=== PATIENT | female | born 2000 | race Two or more races ===

== ENCOUNTER 2022-05-16 13:56 | Emergency (ER) | payer BC ==
[~2022-05-16] VITALS: Ht 154.9 cm; Wt 61.2 kg
--- NOTE | 2022-05-16 14:17 | NUR ---
DR IRVING AT BEDSIDE W/ PT
--- NOTE | 2022-05-16 14:56 | NUR ---
PT TAKEN TO RADIOLOGY VIA [facility]NA[facility]
[2022-05-16] MEDS ORDERED: NAPR-1192 PO (15:49)
[2022-05-16 16:03] VITALS: BP 120/77
--- NOTE | 2022-05-16 16:03 | NUR ---
Patient discharged to home in stable condition. Written and verbal after care instructions given. Patient verbalizes understanding of instruction.
== END 2022-05-16 16:04 | disposition home or self-care (01) ==
LOC: ER 14:07
DX: S16.1XXA Strain of muscle, fascia and tendon at neck level, initial encounter (principal); Z79.1 Long term (current) use of non-steroidal anti-inflammatories (NSAID); V89.2XXA Person injured in unspecified motor-vehicle accident, traffic, initial encounter; Y93.89 Activity, other specified; Y92.89 Other specified places as the place of occurrence of the external cause; Y99.8 Other external cause status
CPT/HCPCS: 99284; 72125; 70450; A6403

== ENCOUNTER 2022-10-29 11:17 | Emergency (ER) | payer BC ==
[~2022-10-29] VITALS: Ht 154.9 cm; Wt 59.0 kg
[~2022-10-29 11:17] MED LIST: NAPR-1192 PO
--- NOTE | 2022-10-29 11:40 | NUR ---
[facility] AT BEDSIDE
--- NOTE | 2022-10-29 11:40 | NUR ---
BIBFRIEND C/O vaginal bleeding that started 2 1/2 weeks ago. feeling dizzy x today. AMBULATORY, PLACED IN BED, AAOX4, BJREATHING UNLABORED SATURATING AT 97%RA
[2022-10-29 11:50] LABS: BASOPHILS % (AUTO) 0.8 % (0.0-2.0); EOSINOPHILS % (AUTO) 2.7 % (0.0-6.0); HEMATOCRIT 38 % (33-45); HEMOGLOBIN 12.7 g/dL (11.5-14.8); LYMPHOCYTES # (AUTO) 1.8 K/uL (0.8-4.8); LYMPHOCYTES % (AUTO) 34.1 % (20.0-44.0); MEAN CORPUSCULAR HGB CONC 33 g/dl (31.0-36.0); MEAN CORPUSCULAR VOLUME 91 fL (82-100); MONOCYTES # (AUTO) 0.3 K/uL (0.1-1.30); MONOCYTES % (AUTO) 5.8 % (2.0-12.0); NEUTROPHILS % (AUTO) 56.6 % (43.0-81.0); PLATELET COUNT (AUTO) 244 K/uL (150-450); RED BLOOD CELL COUNT(AUTO) 4.23 MIL/uL (4.0-5.2); WHITE BLOOD COUNT (AUTO) 5.2 K/uL (4.3-11.0)
--- NOTE | 2022-10-29 11:56 | NUR ---
U/S TECH AT BEDSIDE
[2022-10-29] MEDS ORDERED: IV NS 0.9% 1,000 ML IV ONE (12:00)
[2022-10-29 12:12] LABS: CALCIUM, SERUM 9.5 mg/dL (8.5-10.1); CREATININE 0.9 mg/dL (0.6-1.3); POTASSIUM 4.2 mmol/L (3.5-5.1)
[2022-10-29 12:24] LABS: BILIRUBIN,URINE NEGATIVE (NEGATIVE); COLOR,URINE YELLOW (YELLOW); LEUKOCYTE ESTERASE ,URINE NEGATIVE (NEGATIVE); NITRITE, URINE NEGATIVE (NEGATIVE); PH,URINE 6.5 (5.0-8.0); PROTEIN,URINE NEGATIVE (NEGATIVE); UGLUCOSE NEGATIVE (NEGATIVE); UROBILINOGEN,URINE 0.2 EU/dL (0.2)
[2022-10-29 12:42] LABS: BACTERIA,URINE None seen /HPF (None Seen); RBC,URINE 0-2 /HPF (0-2); SQUAMOUS EPITHELIAL CELL,UR Rare /HPF (None Seen); WBC,URINE NONE SEEN /HPF (0-3)
--- NOTE | 2022-10-29 15:15 | NUR ---
IV removed. Catheter intact and site benign. Pressure and 4x4 applied to site. No bleeding noted.Patient discharged to home in stable condition. Written and verbal after care instructions given. Patient verbalizes understanding of instruction.
[2022-10-29 15:32] VITALS: BP 135/70
--- NOTE | 2022-11-04 09:18 | NUR ---
NS 1000 ML COMPLETED 10/29 @ 2899
== END 2022-10-29 15:15 | disposition home or self-care (01) ==
LOC: ER 11:21
DX: N93.9 Abnormal uterine and vaginal bleeding, unspecified (principal); D64.9 Anemia, unspecified; Z79.899 Other long term (current) drug therapy
CPT/HCPCS: 99284; 76856; 85025; 80048; 84703; 81001; 36415; 86850; 84702; J7030